=== PATIENT | male | born 1960 | race Caucasian/White ===

== ENCOUNTER 2017-09-13 11:49 | Outpatient (CLI) | payer BC ==
--- NOTE | 2017-09-13 16:42 | Diagnostic Imaging Report ---
Indication: Cough Technique: 2 views of the chest Comparison: none Findings: Exam is somewhat limited, as the left posterior costophrenic sulcus is cut off the lateral view. The lungs and pleural spaces are clear. The heart size is normal Impression: Negative
== END 2017-09-13 13:49 | disposition home or self-care (01) ==
LOC: RAD 11:49
DX: R05 Cough (principal)
CPT/HCPCS: 71046